=== PATIENT | male | born 1970 | race Caucasian/White ===

== ENCOUNTER 2023-11-08 10:04 | Emergency (ER) | payer BC ==
[2023-11-08 10:16] VITALS: RESP 18; TEMP 97.4
[2023-11-08] MEDS: KETOROLAC 15 MG/ML 1 ML VIAL IVP STA (10:44)
--- NOTE | 2023-11-08 10:44 | ED ---
Abdominal Pain HPI - General Chief Complaint: Abdominal Pain Stated Complaint: abd pain Time Seen by Provider: 11/08/23 10:24 Source: patient, RN notes reviewed Mode of arrival: ambulatory Limitations: no limitations - History of Present Illness Initial Comments: 53-year-old male presenting with lower abdominal pain x 1 day. States he woke up with a "stomach ache" but the pain has been getting better and that his picked him up from work due to the pain. States the pain is dull and does not radiate. States he has had a bump protruding from his bellybutton for about 2 months, but has not started to hurt until today. His suspects he has a hernia. Denies nausea, vomiting, fever, dysuria, diarrhea, constipation. Last bowel movement was this morning and was normal. Denies previous abdominal surgeries. He takes a baby aspirin daily, denies other blood thinners. - Related Data Allergies Allergy/AdvReac Type Severity Reaction Status Date / Time No Known Allergies Allergy Verified 11/08/23 10:16 Review of Systems ROS Statement: Those systems with pertinent positive or pertinent negative responses have been documented in the HPI. ROS Other: All systems not noted in ROS Statement are negative. Past Medical History Additional Past Medical History / Comment(s): enlarged heart, History of Any Multi-Drug Resistant Organisms: None Reported Past Psychological History: No Psychological Hx Reported Smoking Status: Never smoker Past Alcohol Use History: None Reported Past Drug Use History: None Reported General Exam Limitations: no limitations General appearance: alert, in no apparent distress Head exam: Present: atraumatic, normocephalic, normal inspection Respiratory exam: Present: normal lung sounds bilaterally. Absent: respiratory distress, wheezes, rales, rhonchi, stridor Cardiovascular Exam: Present: regular rate, normal rhythm, normal heart sounds. Absent: systolic murmur, diastolic murmur, rubs, gallop, clicks GI/Abdominal exam: Present: soft, tenderness (Tenderness at site of umbilicus), normal bowel sounds, hernia (Protruding umbilical hernia with mild discolorat ion. Hernia is reducible. + Tender to palpation). Absent: distended, guarding, rebound, rigid Extremities exam: Present: normal inspection Back exam: Present: normal inspection. Absent: CVA tenderness (R), CVA tenderness (L) Neurological exam: Present: alert, oriented X3 Psychiatric exam: Present: normal affect, normal mood Skin exam: Present: warm, dry, intact, normal color. Absent: rash Course Vital Signs 11/08/23 11/08/23 10:12 14:36 Temperature 97.4 F L Pulse Rate 69 56 L Respiratory 18 18 Rate Blood Pressure 132/75 127/75 O2 Sat by Pulse 99 100 Oximetry Medical Decision Making - Medical Decision Making Was pt. sent in by a medical professional or institution (, PA, COMPENSATION ANALYST, urgent care, hospital, or fpc...) When possible be specific @ -No Did you speak to anyone other than the patient for history (EMS, parent, family, police, friend...)? What history was obtained from this source @ -Patient's supplemented history Did you review nursing and triage notes (agree or disagree)? Why? @ -I reviewed and agree with nursing and triage notes Were old charts reviewed (outside hosp., previous admission, EMS record, old EKG, old radiological studies, urgent care reports/EKG's, fpc records)? Report findings @ -No old charts were reviewed Differential Diagnosis (chest pain, altered mental status, abdominal pain women, abdominal pain men, vaginal bleeding, weakness, fever, dyspnea, syncope, headache, dizziness, GI bleed, back pain, seizure, CVA, palpatations, mental health, musculoskeletal)? @ -Differential Abdominal Pain Men: Appendicitis, cholecystitis, diverticulosis, ischemic bowel, pancreatitis, hepatitis, UTI, gastroenteritis, AAA, incarcerated hernia, bowel obstruction, constipation, inflammatory bowel, hepatitis, peptic ulcer disease, splenic infarction, perforated viscus, testicular torsion, this is not meant to be an all-inclusive list EKG interpreted by me (3pts min.). @ -None X-rays interpreted by me (1pt min.). @ -None done CT interpreted by me (1pt min.). @ -CT revealed segmental mild to moderate colonic wall thickening with prominent fluid filled small bowel loops of right lower quadrant, nonspecific infectious or inflammatory enterocolitis, moderate to severe circumferential bladder wall thickening, cholelithiasis, tiny hiatal hernia, tiny fatty umbilical hernia U/S interpreted by me (1pt. min.). @ -None done What testing was considered but not performed or refused? (CT, X-rays, U/S, labs)? Why? @ -None What meds were considered but not given or refused? Why? @ -None Did you discuss the management of the patient with other professionals (professionals i.e. , PA, COMPENSATION ANALYST, lab, RT, psych nurse, pediatric social worker, media assistant, teacher, coastal/harbor defense officer, case making machine operator)? Give summary @ -No Was smoking cessation discussed for >3mins.? @ -No Was critical care preformed (if so, how long)? @ -No Were there social determinants of health that impacted care today? How? (Homelessness, low income, unemployed, alcoholism, drug addiction, transportation, low edu. Level, literacy, decrease access to med. care, long term, rehab)? @ -No Was there de-escalation of care discussed even if they declined (Discuss DNR or withdrawal of care, Hospice)? DNR status @ -No What co-morbidities impacted this encounter? (DM, HTN, Smoking, COPD, CAD, Cancer, CVA, ARF, Chemo, Hep., AIDS, mental health diagnosis, sleep apnea, morbid obesity)? @ -None Was patient admitted / discharged? Hospital course, mention meds given and route, prescriptions, significant lab abnormalities, going to OR and other pertinent info. @ -Patient was discharged. Patient was seen and evaluated for abdominal pain x 1 day. Vital signs are unremarkable and patient appears nontoxic, no acute distress. Physical examination is remarkable for tenderness around umbilical hernia and mild discoloration. Patient was given IV Toradol, declines any stronger pain medication. Lab work including CBC, CMP, lactic acid is largely unremarkable. Urine is remarkable for 1+ ketones, however negative for blood/bacteria. CT reveals mild to moderate colonic wall thickening with prominent fluid-filled small bowel loops in the right lower quadrant, nonspecific infectious or inflammatory enterocolitis. There is moderate to severe circumferential bladder wall thickening, however patient's urine is unremarkable and he is having no urinary symptoms. Tiny fatty umbilical hernia seen. Upon reevaluation, patient states pain has resolved. Diagnosis of enterocolitis discussed with patient in detail. Supportive care discussed. Advised to follow-up with general surgeon regarding hernia. Strict return parameters discussed and patient is agreeable to plan. Case discussed with my ER attending Dr. Rapp. Patient discharged in stable condition. Undiagnosed new problem with uncertain prognosis? @ -No Drug Therapy requiring intensive monitoring for toxicity (Heparin, Nitro, Insulin, Cardizem)? @ -No Were any procedures done? @ -No Diagnosis/symptom? @ -Enterocolitis Acute, or Chronic, or Acute on Chronic? @ -Acute Uncomplicated (without systemic symptoms) or Complicated (systemic symptoms)? @ -Uncomplicated Side effects of treatment? @ -No Exacerbation, Progression, or Severe Exacerbation? @ -No Poses a threat to life or bodily function? How? (Chest pain, USA, NC, pneumonia, PE, COPD, DKA, ARF, appy, cholecystitis, CVA, Diverticulitis, Homicidal, Suicidal, threat to staff... and all critical care pts) @ -Unlikely at this time - Lab Data Result diagrams: 11/08/23 10:41 11/08/23 10:41 Lab Results 11/08/23 11/08/23 11/08/23 Range/Units 10:41 10:41 10:41 WBC 8.3 (3.8-10.6) k/uL RBC 5.35 (4.30-5.90) m/uL Hgb 14.0 (13.0-17.5) gm/dL Hct 44.7 (39.0-53.0) % MCV 83.5 (80.0-100.0) fL MCH 26.1 (25.0-35.0) pg MCHC 31.3 (31.0-37.0) g/dL RDW 14.5 (11.5-15.5) % Plt Count 263 (150-450) k/uL MPV 7.5 Neutrophils % 61 % Lymphocytes % 26 % Monocytes % 5 % Eosinophils % 6 % Basophils % 1 % Neutrophils # 5.1 (1.3-7.7) k/uL Lymphocytes # 2.1 (1.0-4.8) k/uL Monocytes # 0.4 (0-1.0) k/uL Eosinophils # 0.5 (0-0.7) k/uL Basophils # 0.1 (0-0.2) k/uL Hypochromasia Moderate PT 10.9 (10.0-12.5) sec INR 1.0 (<1.2) APTT 26.2 (22.0-30.0) sec Sodium 139 (137-145) mmol/L Potassium 4.2 (3.5-5.1) mmol/L Chloride 108 H (98-107) mmol/L Carbon Dioxide 22 (22-30) mmol/L Anion Gap 9 mmol/L BUN 19 (9-20) mg/dL Creatinine 0.67 (0.66-1.25) mg/dL Est GFR (CKD-EPI)AfAm >90 (>60 ml/min/1.73 sqM) Est GFR (CKD-EPI)NonAf >90 (>60 ml/min/1.73 sqM) Glucose 102 H (74-99) mg/dL Plasma Lactic Acid Ryan (0.7-2.0) mmol/L Calcium 9.3 (8.4-10.2) mg/dL Total Bilirubin 0.9 (0.2-1.3) mg/dL AST 27 (17-59) U/L ALT 25 (4-49) U/L Alkaline Phosphatase 132 H (38-126) U/L Total Protein 7.4 (6.3-8.2) g/dL Albumin 4.6 (3.5-5.0) g/dL Urine Color Urine Appearance (Clear) Urine pH (5.0-8.0) Ur Specific [place] (1.001-1.035) Urine Protein (Negative) Urine Glucose (UA) (Negative) Urine Ketones (Negative) Urine Blood (Negative) Urine Nitrite (Negative) Urine Bilirubin (Negative) Urine Urobilinogen (<2.0) mg/dL Ur Leukocyte Esterase (Negative) 11/08/23 11/08/23 Range/Units 10:41 13:42 WBC (3.8-10.6) k/uL RBC (4.30-5.90) m/uL Hgb (13.0-17.5) gm/dL Hct (39.0-53.0) % MCV (80.0-100.0) fL MCH (25.0-35.0) pg MCHC (31.0-37.0) g/dL RDW (11.5-15.5) % Plt Count (150-450) k/uL MPV Neutrophils % % Lymphocytes % % Monocytes % % Eosinophils % % Basophils % % Neutrophils # (1.3-7.7) k/uL Lymphocytes # (1.0-4.8) k/uL Monocytes # (0-1.0) k/uL Eosinophils # (0-0.7) k/uL Basophils # (0-0.2) k/uL Hypochromasia PT (10.0-12.5) sec INR (<1.2) APTT (22.0-30.0) sec Sodium (137-145) mmol/L Potassium (3.5-5.1) mmol/L Chloride (98-107) mmol/L Carbon Dioxide (22-30) mmol/L Anion Gap mmol/L BUN (9-20) mg/dL Creatinine (0.66-1.25) mg/dL Est GFR (CKD-EPI)AfAm (>60 ml/min/1.73 sqM) Est GFR (CKD-EPI)NonAf (>60 ml/min/1.73 sqM) Glucose (74-99) mg/dL Plasma Lactic Acid Ryan 1.1 (0.7-2.0) mmol/L Calcium (8.4-10.2) mg/dL Total Bilirubin (0.2-1.3) mg/dL AST (17-59) U/L ALT (4-49) U/L Alkaline Phosphatase (38-126) U/L Total Protein (6.3-8.2) g/dL Albumin (3.5-5.0) g/dL Urine Color Colorless Urine Appearance Clear (Clear) Urine pH 7.0 (5.0-8.0) Ur Specific [place] >1.050 H (1.001-1.035) Urine Protein Negative (Negative) Urine Glucose (UA) Negative (Negative) Urine Ketones 1+ H (Negative) Urine Blood Negative (Negative) Urine Nitrite Negative (Negative) Urine Bilirubin Negative (Negative) Urine Urobilinogen <2.0 (<2.0) mg/dL Ur Leukocyte Esterase Negative (Negative) Disposition Clinical Impression: Enterocolitis Disposition: HOME SELF-CARE Condition: Stable Additional Instructions: Please return to the Emergency Department if symptoms worsen or any other conc erns. Is patient prescribed a controlled substance at d/c from ED?: No Referrals: Cody Elena DO [Primary Care Provider] - 1-2 days Sathish Danielle MD [STAFF PHYSICIAN] - 1-2 days Time of Disposition: 14:21
[2023-11-08 11:14] LABS: Basophils # (A) 0.1 k/uL (0-0.2); Basophils % (A) 1 %; Eosinophils # (A) 0.5 k/uL (0-0.7); Eosinophils % (A) 6 %; HCT 44.7 % (39.0-53.0); Hypochromasia Moderate; Lymphocytes # (A) 2.1 k/uL (1.0-4.8); Lymphocytes % (A) 26 %; MCH 26.1 pg (25.0-35.0); MCHC 31.3 g/dL (31.0-37.0); MCV 83.5 fL (80.0-100.0); Mean Platelet Volume 7.5; Monocytes # (A) 0.4 k/uL (0-1.0); Monocytes % (A) 5 %; Neutrophils # (A) 5.1 k/uL (1.3-7.7); Neutrophils % (A) 61 %; Platelet Count 263 k/uL (150-450); RBC 5.35 m/uL (4.30-5.90); RDW 14.5 % (11.5-15.5); WBC 8.3 k/uL (3.8-10.6)
[2023-11-08 11:23] LABS: Partial Thromboplastin Time 26.2 sec (22.0-30.0); Prothrombin Time 10.9 sec (10.0-12.5)
[2023-11-08 11:55] LABS: ALT 25 U/L (4-49); AST 27 U/L (17-59); African American GFR (CKD) >90 (>60 ml/min/1.73 sqM); Albumin 4.6 g/dL (3.5-5.0); Alkaline Phosphatase 132 U/L (38-126); Anion Gap 9 mmol/L; Blood Urea Nitrogen 19 mg/dL (9-20); Calcium 9.3 mg/dL (8.4-10.2); Carbon Dioxide 22 mmol/L (22-30); Chloride 108 mmol/L (98-107); Glucose 102 mg/dL (74-99); Non-African American GFR(CKD) >90 (>60 ml/min/1.73 sqM); Potassium 4.2 mmol/L (3.5-5.1); Sodium 139 mmol/L (137-145); Total Bilirubin 0.9 mg/dL (0.2-1.3); Total Protein 7.4 g/dL (6.3-8.2)
--- NOTE | 2023-11-08 12:23 | CT ---
EXAMINATION TYPE: CT abdomen pelvis w con DATE OF EXAM: 11/08/2023 COMPARISON: NONE HISTORY: 53-year-old male Abdominal pain, acute TECHNIQUE: Contiguous axial scanning of the abdomen and pelvis following administration of 100 ml Iso frandy 300 IV contrast. Delayed images through the kidneys and coronal/sagittal reconstructions perform ed. CT DLP: 889.4 mGycm Automated exposure control for dose reduction was used. FINDINGS: Heart normal size without pericardial effusion. Lung bases clear without pleural effusion. Tiny hiatal hernia. There is a benign 1.9 cm cyst central right liver lobe. Portal venous system is patent. No biliary du ctal dilatation. Numerous 6 monitor and smaller gallstones layering in the nondistended gallbladder. No surrounding ga llbladder inflammation. Adrenal glands, spleen, and pancreas appear within normal limits. A few bilateral renal cortical cysts measuring up to 1.1 cm. Symmetric uptake and excretion of contra st from both kidneys. Tiny fatty umbilical hernia. No dilated small bowel, free fluid, or free air. However, some prominent fluid-filled small bowel loo ps in the right mid to lower abdomen. No mesenteric or retroperitoneal lymphadenopathy. Scattered mild stool. Normal appendix. However, there is segmental mild to moderate circumferential w all thickening scattered throughout the colon including the hepatic flexure, descending colon, mid si gmoid colon, and rectum. No pericolonic inflammatory change. Moderate to severe circumferential bladder wall thickening. Small fat-containing direct right inguina l hernia. No abnormal fluid collection in the pelvis or pelvic lymphadenopathy. Bones: No osseous destructive process. IMPRESSION: 1. Segmental mild to moderate colonic wall thickening. Additionally, there is prominent fluid filled small bowel loops right lower quadrant. Correlate for nonspecific infectious or inflammatory enteroco litis. 2. Moderate to severe circumferential bladder wall thickening may be chronic for the patient. Correla te to exclude cystitis. Given the degree of wall thickening, correlate with urine cytology and consid er urology referral as well. 3. Cholelithiasis, tiny hiatal hernia, and tiny fatty umbilical hernia.
[2023-11-08 13:52] LABS: Appearance,Urine Clear (Clear); Bilirubin,Urine Negative (Negative); Blood,Urine Negative (Negative); Color,Urine Colorless; Glucose,Urine (UA) Negative (Negative); Ketones,Urine 1+ (Negative); Leukocyte Esterase,Urine Negative (Negative); Nitrite,Urine Negative (Negative); Protein,Urine Negative (Negative); Urobilinogen,Urine <2.0 mg/dL (<2.0)
[2023-11-08 13:53] LABS: Specific Gravity,Urine >1.050 (1.001-1.035)
[2023-11-08 14:38] VITALS: BP 127/75; PULSE 56
== END 2023-11-08 14:38 | disposition home or self-care (01) ==
LOC: EC 10:04
DX: K52.9 Noninfective gastroenteritis and colitis, unspecified (principal)
CPT/HCPCS: 36415; 80053; 83605; 85025; 85610; 85730; 81003; 74177; 99284; 96374; J1885; Q9967